=== PATIENT | male | born 1985 | race American Indian/Alaskan Native ===

== ENCOUNTER 2020-04-24 12:55 | Emergency (ER) | payer SELFPAY ==
[2020-04-24] MEDS ORDERED: ALPRAZolam 1 MG TAB PO ONE (13:56)
[2020-04-24] MEDS ORDERED: HALOPERIDOL LACTATE 5 MG/1 ML INJ IM PRN (13:56)
[2020-04-24] MEDS ORDERED: LORazepam 2 MG/ML VIAL IM PRN (13:56)
--- NOTE | 2020-04-24 13:57 | Emergency Department Report ---
<OLIVERMILINDSHERRON - Last Filed: 04/25/20 19:03> ED General Adult HPI - General Chief complaint: Psych Stated complaint: SUICIDAL Time Seen by Provider: 04/24/20 13:46 - Related Data Home Medications Medication Instructions Recorded Confirmed Last Taken No Known Home Medications [No 04/24/20 04/24/20 Unknown Reported Home Medications] Allergies Allergy/AdvReac Type Severity Reaction Status Date / Time No Known Allergies Allergy Verified 04/24/20 13:43 ED Past Medical Hx - Medications Home Medications: Home Medications Medication Instructions Recorded Confirmed Last Taken Type No Known Home Medications [No 04/24/20 04/24/20 Unknown History Reported Home Medications] ED Medical Decision Making - Lab Data Result diagrams: 04/25/20 15:35 04/24/20 14:14 - Medical Decision Making Due to increased agitation and threats to leave the department prior to mental health assessment, I have ordered seclusion. With verbal threats and homicidal ideation, 1013 involuntary hold indicated. I have filled out form. ED Disposition Clinical Impression: Medical clearance for psychiatric admission, History of traumatic brain injury Disposition: DC-01 TO HOME OR SELFCARE Condition: Stable Additional Instructions: Outpatient COMMUNITY Behavioral Health Resources: [facility] ([facility]) [address] [place] [address] / Wednesday thru Wednesday - 8am - 5pm [facility] Address: [address] [place] [address] Wednesday thru Wednesday- 7am-2pm [facility] Address: [address] [place] [address] Wednesday thru Wednesday: 8:30AM-5PM CRISIS RESOURCES [place] Crisis Line: Suicide Prevention Line: Crisis Text Line: Text START to [phone] Emergency: 911 Referrals: PRIMARY CARE, [Primary Care Provider] - 3-5 Days <DERRICK TAN - Last Filed: 04/26/20 13:30> ED Medical Decision Making - Lab Data Result diagrams: 04/25/20 15:35 04/24/20 14:14 - Medical Decision Making The patient was evaluated in the emergency department over the past 2 days for a mental health evaluation. At this time the patient is awake, alert, oriented, calm and appropriate. He denies any hallucinations, suicidal or homicidal ideations. The previous 1013 has been rescinded by the psychiatric team and they have provided outpatient referral/resources. The patient has been instructed to return to the emergency department with any concerns, thoughts of harming himself or others, or with any acute distress. ED Disposition Is pt being admited?: No <MAJOR LEUNG - Last Filed: 04/26/20 15:58> ED General Adult HPI - General PUI?: No Source: patient, RN notes reviewed Mode of arrival: Ambulatory Limitations: No Limitations - History of Present Illness Initial comments: The patient was evaluated in the emergency department for symptoms described in the history of present illness. He/she was evaluated in the context of the global COVID-19 pandemic, which necessitated consideration that the patient might be at risk for infection with the virus that causes COVID-19. Institutional protocols and algorithms that pertain to the evaluation of patients at risk for COVID-19 are in a state of rapid change based on information released by regulatory bodies including the CDC and federal and state organizations. These policies and algorithms were followed during the patient's care in the emergency department. Please note that these policies, procedures and recommendations changed on a rapid basis. The patient is a 35-year-old gentleman. He is not known to myself previously. He is brought to the hospital by EMS for psychiatric evaluation. The patient himself reportedly has a history of traumatic brain injury. He states he has no complaints, but "I am okay with getting checked out." He states today is his birthday. He is going to celebrate later on today. He states that recently he found out his apartment was infested with mold, and this concerned and distressed him. He felt like he was going to "spasm out." Earlier on today, he reports that he was washing clothing, because he was worried that it was contaminated with mold, and was thus walking outside without clothing and was covered by sheet. He states that somebody thought this was inappropriate, and contacted emergency medical services. They were also apparently concerned that he wanted to overdose. The patient himself denies all physical pain and complaints. He states he is not homicidal or suicidal and he does not want to overdose. However, he did inform the nurse who triaged him that he was feeling homicidal. He denies recreational drug use. As per collateral information from nursing team: "spoke w/ Connie garcia (aunt) [phone]. She states pt has a history of traumatic brain injury from accident in 2003. reports since accident had a change in behavior and that she was legal guardian until the age of 20. reports she is also guardian of pt's mother who schizophrenic and is currently in inpatient treatment. pt currently lives along at [address] [place] [address]. Apt [facility], [place], [place]. She reports the apt retail assistant store manager Brock Davenport contacted her after pt was found walking around outside with underwear, and a dishelved apt. reports no history of violence to anyone but reports pt is explosive and yelling and verbally threatening at times. report she is actively pursuing guardianship of pt." Improves with: none Worsens with: none Associated Symptoms: denies other symptoms ED Review of Systems ROS: Stated complaint: SUICIDAL Other details as noted in HPI Comment: All other systems reviewed and negative ED Past Medical Hx - Past Medical History Previous Medical History?: No - Surgical History Past Surgical History?: No - Social History Smoking Status: Never Smoker Substance Use Type: Marijuana ED Physical Exam - General Limitations: No Limitations General appearance: alert, in no apparent distress - Head Head exam: Present: atraumatic, normocephalic - Eye Eye exam: Present: normal appearance, PERRL, EOMI, other (Visual acuity intact to finger counting, color perception, reading at a close distance). Absent: nystagmus - ENT ENT exam: Present: normal exam, normal orophraynx, mucous membranes moist, normal external ear exam - Neck Neck exam: Present: normal inspection, full ROM. Absent: tenderness, meningismus - Respiratory Respiratory exam: Present: normal lung sounds bilaterally. Absent: respiratory distress, wheezes, rales, rhonchi, stridor, decreased breath sounds - Cardiovascular Cardiovascular Exam: Present: regular rate, normal rhythm, normal heart sounds. Absent: bradycardia, tachycardia, irregular rhythm, systolic murmur, diastolic murmur, rubs, gallop - GI/Abdominal GI/Abdominal exam: Present: soft, normal bowel sounds. Absent: distended, tenderness, guarding, rebound, rigid, pulsatile mass - Rectal Rectal exam: Present: deferred - Extremities Exam Extremities exam: Present: normal inspection, full ROM, other (2+ pulses noted in the bilateral upper and lower extremities. There is no palpable cord. negative Homans sign. Muscular compartments are soft. The pelvis is stable.). Absent: pedal edema, calf tenderness - Back Exam Back exam: Present: normal inspection, full ROM. Absent: tenderness, CVA tenderness (R), CVA tenderness (L), paraspinal tenderness, vertebral tenderness - Neurological Exam Neurological exam: Present: alert (Patient alert and oriented to name, place, location and month. Able to subtract 100-7, and 4+4.), oriented X3, normal gait, other (No facial droop. Tongue midline. Extraocular movements intact bilaterally. Facial sensation intact to light touch in V1, V2, V3 distribution bilaterally. 5 and a 5 strength in 4 extremities. Sensation intact to light touch in 4 extremities.). Absent: motor sensory deficit - Psychiatric Psychiatric exam: Absent: depressed, flat affect, manic, homicidal ideation, suicidal ideation - Skin Skin exam: Present: warm, dry, intact, normal color. Absent: rash ED Course Vital Signs 04/24/20 04/24/20 04/25/20 15:13 20:00 01:00 Temperature 98.7 F 97.4 F L 98.0 F Pulse Rate 88 69 80 Respiratory 18 18 20 Rate Blood Pressure 142/77 112/79 136/70 [Right] O2 Sat by Pulse 100 99 98 Oximetry 04/25/20 04/25/20 04/26/20 08:22 21:18 01:33 Temperature 98.0 F 98.4 F 98.0 F Pulse Rate 88 76 77 Respiratory 20 18 18 Rate Blood Pressure 112/70 109/73 110/69 [Right] O2 Sat by Pulse 100 96 97 Oximetry 04/26/20 08:26 Temperature 98.0 F Pulse Rate 71 Respiratory 20 Rate Blood Pressure 116/71 [Right] O2 Sat by Pulse 98 Oximetry - Reevaluation(s) Reevaluation #1: 04/24/20 15:15 Differential diagnosis, including but not limited to: General medical evaluation, general psychiatric evaluation, history of traumatic brain injury Assessment and plan: 35-year-old gentleman who apparently is sent to the emergency room for bizarre behavior. He does have a bizarre affect, but he is alert and oriented, clinically sober, walks with a steady gait, is not homicidal, is not suicidal, and exhibits decision-making capacity. It is my opinion that he does not require 1013 or involuntary hold at this time. Given inconsistent history, we will request a psychiatric consultation to further assist with patient's management in the emergency room. His screening laboratory studies are unremarkable, his physical exam is unremarkable, vital signs are unremarkable. At this point time, patient does not appear to have an immediate medical contraindication to discharge, or psychiatric admission, evaluation, consultation if the psychiatry team deems it appropriate ED Medical Decision Making - Lab Data Result diagrams: 04/25/20 15:35 04/24/20 14:14 Lab Results 04/24/20 04/24/20 04/24/20 Range/Units 14:14 14:14 14:14 Hgb (11.8-15.2) gm/dl Hct (35.5-45.6) % Plt Count (140-440) K/mm3 Sodium 140 (137-145) mmol/L Potassium 4.6 (3.6-5.0) mmol/L Chloride 102.6 (98-107) mmol/L Carbon Dioxide 24 (22-30) mmol/L Anion Gap 18 mmol/L BUN 9 (9-20) mg/dL Creatinine 1.2 (0.8-1.3) mg/dL Estimated GFR > 60 ml/min BUN/Creatinine Ratio 8 % Glucose 80 (75-100) mg/dL Calcium 9.8 (8.4-10.2) mg/dL Magnesium (1.7-2.3) mg/dL Total Creatine Kinase (55-170) units/L Salicylates < 0.3 L (2.8-20.0) mg/dL Acetaminophen 5.0 L (10.0-30.0) ug/mL Plasma/Serum Alcohol (0-0.07) % 04/24/20 04/24/20 04/24/20 Range/Units 14:14 14:14 14:14 Hgb 14.9 (11.8-15.2) gm/dl Hct 45.0 (35.5-45.6) % Plt Count 257 (140-440) K/mm3 Sodium (137-145) mmol/L Potassium (3.6-5.0) mmol/L Chloride (98-107) mmol/L Carbon Dioxide (22-30) mmol/L Anion Gap mmol/L BUN (9-20) mg/dL Creatinine (0.8-1.3) mg/dL Estimated GFR ml/min BUN/Creatinine Ratio % Glucose (75-100) mg/dL Calcium (8.4-10.2) mg/dL Magnesium 2.20 (1.7-2.3) mg/dL Total Creatine Kinase 276 H (55-170) units/L Salicylates (2.8-20.0) mg/dL Acetaminophen (10.0-30.0) ug/mL Plasma/Serum Alcohol < 0.01 (0-0.07) % Vital Signs 04/24/20 15:13 Temperature 98.7 F Pulse Rate 88 Respiratory 18 Rate Blood Pressure 142/77 [Right] O2 Sat by Pulse 100 Oximetry Critical care attestation.: If time is entered above; I have spent that time in minutes in the direct care of this critically ill patient, excluding procedure time. ED Disposition Is pt being admited?: No Does the pt Need Aspirin: No
[2020-04-24 14:34] LABS: Hemoglobin 14.9 gm/dl (11.8-15.2)
[2020-04-24 14:45] LABS: BUN/Creatinine Ratio 8; Blood Urea Nitrogen 9 mg/dL (9-20); Calcium 9.8 mg/dL (8.4-10.2); Hemolysis Index 8
[2020-04-24 16:58] LABS: Bilirubin,Urine NEG (Negative); Blood,Urine NEG (Negative); Color,Urine Yellow (Yellow); Mucus,Urine FEW /HPF; Protein,Urine <15 mg/dL mg/dL (Negative); Urobilinogen,Urine < 2.0 mg/dL (<2.0)
[2020-04-24 17:06] LABS: Amphetamine Screen,Urine PRESUMPTIVE NEGATIVE; Benzodiazepines Screen,Urine PRESUMPTIVE NEGATIVE; Cannabinoid Screen,Urine PRESUMPTIVE POSITIVE; Cocaine Screen,Urine PRESUMPTIVE NEGATIVE; Methadone Screen,Urine PRESUMPTIVE NEGATIVE; Opiate Screen,Urine PRESUMPTIVE NEGATIVE
[2020-04-25 15:49] LABS: Basophils % (Auto) 0.8 % (0.0-1.8); Eosinophils % (Auto) 0.7 % (0.0-4.3); Hematocrit 44.7 % (35.5-45.6); Hemoglobin 14.9 gm/dl (11.8-15.2); Lymphocytes # (Auto) 1.7 K/mm3 (1.2-5.4); Lymphocytes % (Auto) 40.6 % (13.4-35.0); Mean Corpuscular HGB Conc 33 % (32-34); Mean Corpuscular Volume 87 fl (84-94); Monocytes # (Auto) 0.4 K/mm3 (0.0-0.8); Monocytes % (Auto) 8.7 % (0.0-7.3); Platelet Count 254 K/mm3 (140-440); Red Blood Count 5.15 M/mm3 (3.65-5.03); Red Cell Distribution Width 13.6 % (13.2-15.2)
--- NOTE | 2020-04-25 17:08 | Cat Scan Report ---
CT head/brain wo con INDICATION: History of traumatic brain injury, psychosis. TECHNIQUE: Routine CT head without contrast. All CT scans at this location are performed using CT dos e reduction for ALARA by means of automated exposure control. COMPARISON: None. FINDINGS: BRAIN / INTRACRANIAL CONTENTS: There has been previous frontal craniotomy. No acute hemorrhage, mass effect, midline shift, or hydrocephalus. No appreciable acute large territorial or lacunar infarct. N o chronic infarct or focal atrophy. Normal brain volume and ventricular/sulcal size for age. ORBITS: No significant abnormality of visualized orbits. SINUSES / MASTOIDS: No significant abnormality of visualized sinuses and mastoid air cells. ADDITIONAL FINDINGS: None. IMPRESSION: 1. No acute findings. Previous frontal craniotomy noted. Signer Name: Marc Bush MD Signed: 04/25/2020 5:04 PM Workstation Name: [id number]
[2020-04-26 08:27] VITALS: BP 116/71
--- NOTE | 2020-04-26 12:38 | Consultation ---
History of Present Illness - Reason for Consult Consult date: 04/26/20 Reason for consult: agitation - History of Present Psychiatric Illness The patient's medical record was reviewed and the patient's progress was discussed with the nursing staff. The sitter caring for the patient states the patient has been calm and cooperative and has denies SI/HI or hallucinations. The nurse note states the patient is in room sitting up on recliner, calm and cooperative talking with roommate, pt [id number] able to make needs known, During my interview with the patient today, he is in his room conversing with another patient. He is talkative. He is a/o x 3. He is calm and cooperative. The patient makes good eye contact. The patient states "it's nakia crazy why they brought me here." He then laughs. He says, "I was washing clothes which is right across from my apartment complex." He then says, "I had on my underwear, but it was just right across. And then I had a sheet around me." He says "next thing I know the police was outside." The patient denies SI/HI, "stating I've never heard voices, seen things or any of that." He also denies hallucinations of any kind. The patient also denies any past psych history, or being on any medications. He says he uses "weed and alcohol occasionally." When asking the patient about his mood, he replies, "I feel good, besides being in here for my birthday." He then says, "There was nothing wrong with me when I came in." PAST PSYCHIATRIC HISTORY Diagnoses: Denies Suicide attempts or Self-harm behavior: Denies Prior psychiatric hospitalizations: Denies Substance Abuse history: weed Previous psychiatric medications tried: Denies Outpatient treatment: Denies PAST MEDICAL HISTORY: None reported FAMILY PSYCHIATRIC HISTORY: None reported or documented SOCIAL HISTORY Marital Status: Single Living Arrangements: Alone Employment Status: Unemployed Access to guns/weapons: Denies Education: High school History of Abuse: None reported Legal History: none reported REVIEW OF SYSTEMS Constitutional: Negative for weight loss ENT: Negative for stridor Respiratory: Negative for cough or hemoptysis All other systems reviewed and are negative MENTAL STATUS EXAMINATION General Appearance: Dressed appropriately Behavior: Calm and cooperative. Good eye contact. Mood: "good" Affect and affective range: Congruent with stated mood Speech: Normal volume, Regular rate and rhythm Thought Process: Goal directed Thought Content: Suicidal Ideation: Denies Homicidal Ideation: Denies Hallucinations: Denies Delusions: None elicited Insight and Judgment: Limited Memory/Cognition: Normal Attention: Normal Assessment Mental Health Evaluation TREATMENT PLAN D/C 1013 No medications at this time Risks, benefits and alternatives of medications discussed with the patient, questions answered and consent obtained from patient. PSYCHOTHERAPY: Supportive psychotherapy provided MEDICAL: Per primary team DELIRIUM PRECAUTIONS: Please re-orient patient frequently, keep lights on during the day, and minimize benzodiazepines and opiates as these medications could worsen patient's confusion. CODING ANALYST: Defer to primary DISPOSITION: Do not recommend acute inpatient psychiatric hospitalization at this time. The patient may discharge home once medically clear. The patient understands that if SI/HI or any fear of endangerment are to arise he is to seek immediate assistance including but not limited to the crisis hotline, 911, and/or ER. The salt lifter to give the patient resources for outpatient psychiatry if needed He is to follow up with outpatient psych or primary in 7 to 14 days upon discharge as needed Will sign off. Thank you for the consult. Please contact with any questions and/or concerns. Medications and Allergies Allergies Allergy/AdvReac Type Severity Reaction Status Date / Time No Known Allergies Allergy Verified 04/24/20 13:43 Home Medications Medication Instructions Recorded Confirmed Last Taken Type No Known Home Medications [No 04/24/20 04/24/20 Unknown History Reported Home Medications] Active Meds: Active Medications Haloperidol Lactate (Haldol) 5 mg IM Q6HR PRN PRN Reason: Agitation Last Admin: 04/24/20 18:07 Dose: 5 mg Documented by: Lorazepam (Ativan) 2 mg IM Q4HR PRN PRN Reason: Agitation Last Admin: 04/24/20 18:06 Dose: 2 mg Documented by: Mental Status Exam - Vital signs Last Vital Signs Temp 98.0 F 04/26/20 08:26 Pulse 71 04/26/20 08:26 Resp 20 04/26/20 08:26 BP 116/71 04/26/20 08:26 Pulse Ox 98 04/26/20 08:26 Results Result Diagrams: 04/25/20 15:35 04/24/20 14:14 Abnormal lab results 08/27/20 Range/Units 15:35 WBC 4.3 L (4.5-11.0) K/mm3 RBC 5.15 H (3.65-5.03) M/mm3 Lymph % (Auto) 40.6 H (13.4-35.0) % Victoria % (Auto) 8.7 H (0.0-7.3) % All other labs normal.
== END 2020-04-26 13:41 | disposition home or self-care (01) ==
LOC: EEVIPCON 12:55 → ED 12:55
DX: R41.82 Altered mental status, unspecified (principal)
CPT/HCPCS: 36415; 70450; 80048; 80307; 81001; 82550; 83735; 85014; 85018; 85025; 85049; 96372; 99284; J1630; J2060; 80320; G0480